=== PATIENT | male | born 1990 | race African-American/Black ===

== ENCOUNTER 2018-04-24 19:39 | Emergency (ER) | payer SELFPAY ==
[~2018-04-24] VITALS: Ht 167.6 cm; Wt 62.0 kg
[2018-04-24] MEDS ORDERED: KETOROLAC 60MG/2ML VIAL IM STA (21:10)
[2018-04-24 21:55] LABS: CLARITY URINE CLEAR (CLEAR); COLOR URINE YELLOW (YELLOW); KETONES URINE TRACE (NEGATIVE); LEUKOCYTE ESTERASE URINE NEGATIVE (NEGATIVE); NITRITE URINE NEGATIVE (NEGATIVE); OCCULT BLOOD URINE NEGATIVE (NEGATIVE); PROTEIN URINE NEGATIVE (NEGATIVE); SPECIFIC GRAVITY URINE 1.024 (1.005-1.030)
[2018-04-24] MEDS ORDERED: METHOCARBAMOL 500MG TABLET PO ONE (22:30)
[2018-04-25 00:35] VITALS: BP 109/80
== END 2018-04-25 00:44 | disposition home or self-care (01) ==
LOC: ER 22:34
DX: M54.6 Pain in thoracic spine (principal); K59.00 Constipation, unspecified; F12.90 Cannabis use, unspecified, uncomplicated
CPT/HCPCS: 72100; 81003; 96372; 99285; J1885; Z7610

== ENCOUNTER 2019-09-15 08:42 | Emergency (ER) | payer MEDICAID ==
[~2019-09-15] VITALS: Ht 175.3 cm; Wt 61.0 kg
[2019-09-15] MEDS ORDERED: KETOROLAC 60MG/2ML VIAL IM ONE (09:30)
[2019-09-15] MEDS ORDERED: OXYCODONE HCL/ACETAMINOPHEN 5/325MG TABLET PO ONE (09:30)
[2019-09-15 12:40] VITALS: BP 102/63
== END 2019-09-15 12:44 | disposition home or self-care (01) ==
LOC: ER 08:42
DX: M79.18 Myalgia, other site (principal); M54.9 Dorsalgia, unspecified
CPT/HCPCS: 96372; 99283; J1885